=== PATIENT | female | born 1970 | race Caucasian/White ===

== ENCOUNTER → 2017-01-30 | Outpatient (CLI) | payer OTHER | LOC: FIMAGING 07:42 | PROVIDERS: ATTEND Internal Medicine | DX: Z12.31 Encounter for screening mammogram for malignant neoplasm of breast (principal) | CPT/HCPCS: G0202 ==

== ENCOUNTER → 2017-02-10 | Outpatient (CLI) | payer OTHER | LOC: FIMAGING 13:33 | PROVIDERS: ATTEND Internal Medicine | DX: N60.11 Diffuse cystic mastopathy of right breast (principal) | CPT/HCPCS: G0206 ==

== ENCOUNTER → 2018-02-09 | Outpatient (CLI) | payer OTHER | LOC: FIMAGING 07:39 | PROVIDERS: ATTEND Internal Medicine | DX: Z12.31 Encounter for screening mammogram for malignant neoplasm of breast (principal) ==